=== PATIENT | female | born 1975 | race African-American/Black ===

== ENCOUNTER 2023-12-27 13:37 | Emergency (ER) | payer OTHER ==
[2023-12-27 13:45] VITALS: BP 121/75; PULSE 91; RESP 18; TEMP 97.9; BMI 23.3
[2023-12-27 14:50] LABS: BASO % 1.5 % (0-2.0); EOS % 0.3 % (0-4.5); LYMPH % 26.9 % (8-40); MCHC 27.3 g/dl (32.0-36.0); MONO % 8.4 % (3.8-10.2); NEUT % 62.9 % (42.8-82.8); PLATELET COUNT 336 10^3/uL (134-434); RBC 3.72 M/mm3 (3.60-5.2); RDW 23.3 % (11.6-15.6)
[2023-12-27 14:51] LABS: MCH 16.1 pg (25.7-33.7); RETICULOCYTES 1.56 % (0.5-1.5)
[2023-12-27 15:04] LABS: POTASSIUM 3.9 mmol/L (3.5-5.1)
[2023-12-27 15:06] LABS: CALCIUM 8.9 mg/dL (8.5-10.1)
[2023-12-27 15:07] LABS: ALBUMIN 4.1 g/dl (3.4-5.0)
[2023-12-27 15:10] LABS: CREATININE 0.8 mg/dL (0.55-1.3)
[2023-12-27 15:11] LABS: TOT PROT 8.2 g/dl (6.4-8.2)
[2023-12-27 15:12] LABS: BILIRUBIN,TOTAL 0.2 mg/dL (0.2-1)
[2023-12-27 15:37] LABS: ANISOCYTOSIS 2+; MACROCYTOSIS 0
== END 2023-12-27 15:57 | disposition home or self-care (01) ==
LOC: JER 13:37
DX: D50.0 Iron deficiency anemia secondary to blood loss (chronic) (principal); R42 Dizziness and giddiness
CPT/HCPCS: 36415; 80053; 84703; 85025; 85045; 86850; 86900; 86901; 99283-25